=== PATIENT | male | born 1945 | race Caucasian/White ===

== ENCOUNTER 2023-04-29 13:43 | Emergency (ER) | payer MEDICARE, OTHER ==
[2023-04-29] MEDS: Acetaminophen 500 MG Tab PO ONE (15:28)
== END 2023-04-29 14:26 | disposition home or self-care (01) ==
LOC: DL.ED 13:43
DX: S82.55XA Nondisplaced fracture of medial malleolus of left tibia, initial encounter for closed fracture (principal); X50.1XXA Overexertion from prolonged static or awkward postures, initial encounter
CPT/HCPCS: 73610; 99283; A9270